=== PATIENT | male | born 1980 | race Hispanic/Latino ===

== ENCOUNTER 2023-08-22 12:00 | Emergency (ER) | payer SELFPAY ==
[~2023-08-22] VITALS: Ht 167.6 cm; Wt 89.0 kg
[~2023-08-22 12:00] MED LIST: NO HOME MEDS
[2023-08-22 12:06] VITALS: BP 142/94
[2023-08-22 12:30] VITALS: BP 135/93
[2023-08-22] MEDS ORDERED: Diph, Acellular Pertussis, Tet 0.5 ML/VIAL (Tdap) SDV IM ONE (12:40)
[2023-08-22] MEDS ORDERED: LIDOCAINE 2% W/ EPINEPHRINE 30 ML MDV STI ONE (12:40)
[2023-08-22] MEDS ORDERED: ceFAZolin Sodium 2 GM/VIAL SDV IM ONE (12:40)
[2023-08-22] MEDS ORDERED: LIDOCAINE 2% W/ EPINEPHRINE 20 ML INJ STI ONE (12:45)
[2023-08-22 13:00] VITALS: BP 132/92
[2023-08-22 13:30] VITALS: BP 148/92
[2023-08-22] MEDS ORDERED: STERILE WATER 1 VIAL IV ONE (13:38)
[2023-08-22 14:00] VITALS: BP 138/90
[2023-08-22 14:33] VITALS: BP 138/90
== END 2023-08-22 14:34 | disposition home or self-care (01) | DRG 605 ==
LOC: ED 12:00
PROC: 0JQG3ZZ Repair Right Lower Arm Subcutaneous Tissue and Fascia, Percutaneous Approach (ICD-10-PCS; principal; 2023-08-22)
DX: S51.811A Laceration without foreign body of right forearm, initial encounter (principal); F17.200 Nicotine dependence, unspecified, uncomplicated; W20.8XXA Other cause of strike by thrown, projected or falling object, initial encounter
CPT/HCPCS: J0690

== ENCOUNTER 2023-09-04 10:19 | Emergency (ER) | payer SELFPAY ==
[~2023-09-04] VITALS: Ht 167.6 cm; Wt 88.8 kg
[2023-09-04 10:26] VITALS: BP 131/86
[2023-09-04 11:32] VITALS: BP 117/80
[2023-09-04 11:34] VITALS: BP 117/80
== END 2023-09-04 11:45 | disposition home or self-care (01) | DRG 950 ==
LOC: ED 10:19
DX: S51.811D Laceration without foreign body of right forearm, subsequent encounter (principal); X58.XXXD Exposure to other specified factors, subsequent encounter